=== PATIENT | female | born 1960 | race African-American/Black ===

== ENCOUNTER 2016-10-07 07:33 | Day surgery (SDC) | payer OTHER ==
--- NOTE | ~2016-10-07 | EGD ---
EGD REPORT [facility] [address] [id number] NAME: KERWIN RESENDIZ : 58 STATUS : [place] [facility] [place]#: [id number] AGE: 56 ADM/REG DATE : 10/07/16 MR#: [id number] REPORT SERV DATE: 10/07/16 DICTATED BY: GRISEL KUMARI DATE: 10/07/16 REPORT STATUS : Draft TRANSCRIBED BY: [employer] DATE: 10/07/16 [facility] Patient Name: Kerwin Resendiz Date of : 1960 Attending MD: GRISEL KUMARI, Procedure Date No Time: 10/07/2016 Procedure: Colonoscopy Indications: Follow-up of Crohn's disease of the small bowel and colon Referring MD: KRISTINA LIM MD Medicines: Monitored Anesthesia Care Complications: No immediate complications. Estimated blood loss: None. Procedure: Pre-Anesthesia Assessment: - ASA Grade Assessment: III - A patient with severe systemic disease. After I obtained informed consent, the scope was passed under direct vision. Throughout the procedure, the patient's blood pressure, pulse, and oxygen saturations were monitored continuously. The PCF [id number] was introduced through the anus and advanced to the cecum, identified by appendiceal orifice and ileocecal valve. The colonoscopy was performed without difficulty. The patient tolerated the procedure well. The quality of the bowel preparation was adequate. Despite multiple attempts the TI could not be intubated. Findings: The perianal and digital rectal examinations were normal. Multiple small-mouthed diverticula were found in the sigmoid colon, in the descending colon, in the transverse colon and in the ascending colon. A sessile polyp was found in the cecum. The polyp was 1 mm in size. The polyp was removed with a cold biopsy forceps. Resection and retrieval were complete. Verification of patient identification for the specimen was done. Estimated blood loss was minimal. Two sessile polyps were found in the rectum. The polyps were 4 to 5 mm in size. These polyps were removed with a cold snare. Resection and retrieval were complete. Verification of patient identification for the specimen was done. Estimated blood loss was minimal. Internal hemorrhoids were found during retroflexion and were Grade II (internal hemorrhoids that prolapse but reduce spontaneously). Impression: - Diverticulosis in the sigmoid colon, in the descending colon, in the transverse colon and in the ascending colon. - One 1 mm polyp in the cecum. Resected and retrieved. - Two 4 to 5 mm polyps in the rectum. Resected and EGD REPORT [address] [address] NAME: KERWIN RESENDIZ : 58 STATUS : [place] [facility] [place]#: [id number] AGE: 56 ADM/REG DATE : 10/07/16 MR#: [id number] REPORT SERV DATE: 10/07/16 DICTATED BY: GRISEL KUMARI DATE: 10/07/16 REPORT STATUS : Draft TRANSCRIBED BY: [employer] DATE: 10/07/16 retrieved. - Internal hemorrhoids. Recommendation: - Patient has a contact number available for emergencies. The signs and symptoms of potential delayed complications were discussed with the patient. Return to normal activities tomorrow. Written discharge instructions were provided to the patient. - Return to previous diet. - Continue present medications. - Await pathology results. - Repeat colonoscopy for surveillance based on pathology results. - Return to GI office in 4 weeks. Procedure Code(s): --- Professional --- 55985, Colonoscopy, flexible, proximal to splenic flexure; with removal of tumor(s), polyp(s), or other lesion(s) by snare technique [id number], 59, Colonoscopy, flexible, proximal to splenic flexure; with biopsy, single or multiple Diagnosis Code(s): --- Professional --- K64.1, Second degree hemorrhoids K57.30, Diverticulosis of large intestine without perforation or abscess without bleeding K50.80, Crohn's disease of both small and large intestine without complications K62.1, Rectal polyp D12.0, Benign neoplasm of cecum CPT copyright 2013 [employer]. All rights reserved. The codes documented in this report are preliminary and upon crisis counselor review may be revised to meet current compliance requirements. GRISEL KUMARI, 10/07/2016 9:25 AM Number of Addenda: 0 Note Initiated On: 10/07/2016 8:49 AM Scope Withdrawal Time 0 hours 18 minutes 52 seconds [id number] [id number]
[~2016-10-07 07:33] MED LIST: ASAB PO; BYSTOLIC10 MG PO; CLARIT10 PO; DELZICOL 400 M400 MG PO; MAXZIDE; MULTIPLE VIT PO; VITAMIN B-1500 MG PO; ZOCOR40 PO; [UNRECOGNIZED DRUG - OTHER]
[2016-11-07] MEDS ORDERED: VITAMIN D31000 UNIT PO (11:57)
[2016-11-07] MEDS ORDERED: ZOCOR40 PO (11:58)
[2016-11-07] MEDS ORDERED: PROAIR HFA INH (12:00)
[2017-04-17] MEDS ORDERED: BEN25 PO (11:16)
[2017-05-02] MEDS ORDERED: DIL2TAB PO (09:36)
[2017-05-02] MEDS ORDERED: C5 (09:37)
[2017-05-02] MEDS ORDERED: ZOFRAN4 PO (09:37)
== END 2016-10-07 23:59 | disposition home or self-care (01) ==
LOC: DMU 07:33
PROVIDERS: Internal Medicine Gastroenterology
PROC: 0DBH8ZZ Excision of Cecum, Via Natural or Artificial Opening Endoscopic (ICD-10-PCS; principal; 2016-10-07 09:00)
PROC: 0DBP8ZZ Excision of Rectum, Via Natural or Artificial Opening Endoscopic (ICD-10-PCS; 2016-10-07 09:00)
DX: D12.0 Benign neoplasm of cecum (principal); K62.1 Rectal polyp; K64.1 Second degree hemorrhoids; K57.30 Diverticulosis of large intestine without perforation or abscess without bleeding; K44.9 Diaphragmatic hernia without obstruction or gangrene; E66.8 Other obesity; I10 Essential (primary) hypertension; J44.9 Chronic obstructive pulmonary disease, unspecified; G47.33 Obstructive sleep apnea (adult) (pediatric); K50.90 Crohn's disease, unspecified, without complications; Z88.5 Allergy status to narcotic agent; Z91.040 Latex allergy status; Z79.82 Long term (current) use of aspirin; Z79.899 Other long term (current) drug therapy; Z87.891 Personal history of nicotine dependence; H91.90 Unspecified hearing loss, unspecified ear; E78.00 Pure hypercholesterolemia, unspecified; M19.90 Unspecified osteoarthritis, unspecified site; Z90.711 Acquired absence of uterus with remaining cervical stump; Z90.49 Acquired absence of other specified parts of digestive tract; Z87.19 Personal history of other diseases of the digestive system
CPT/HCPCS: 88305